=== PATIENT | female | born 1960 | race African-American/Black ===

== ENCOUNTER 2021-11-14 13:35 | Emergency (ER) | payer MEDICAID ==
[~2021-11-14] VITALS: Ht 165.1 cm; Wt 104.0 kg
[~2021-11-14 13:35] MED LIST: AMLO10TA80 PO; HYDR25TA PO; METH-371 MT; METO-411 PO; XAR15 MT
[2021-11-14 14:16] LABS: BASOPHILS % 0.7 % (0.0-2.0); EOSINOPHILS % 0.1 % (0.0-5.0); HEMATOCRIT. 42.7 % (36.0-48.0); HEMOGLOBIN. 14.4 g/dL (12.0-16.0); LYMPHOCYTES % 21.1 % (20.0-50.0); MEAN CORPUSCULAR HEMOGLOBIN 28.2 pg (28.0-32.0); MEAN CORPUSCULAR VOLUME 83.6 fL (81.0-99.0); MONOCYTES % 5.4 % (2.0-8.0); NEUTROPHILS % 72.7 % (40.0-76.0); PLATELET 400 x1000/uL (130-400); RED BLOOD CELL COUNT 5.11 mill/uL (4.2-5.4); RED CELL DISTRIBUTION WIDTH 13.5 % (11.6-14.6)
[2021-11-14 14:26] LABS: CHLORIDE 99 mEq/L (98-107)
[2021-11-14 14:37] LABS: ETHANOL BLOOD < 10 mg/dL
[2021-11-14 15:30] LABS: *AMPHETAMINES SCREEN URINE NEGATIVE (NEGATIVE); *BARBITURATES SCREEN URINE NEGATIVE (NEGATIVE); *BENZODIAZEPINES SCREEN URINE NEGATIVE (NEGATIVE); *COCAINE SCREEN URINE NEGATIVE (NEGATIVE); CANNABINOID URINE SCREEN NEGATIVE (NEGATIVE); METHADONE URINE SCREEN NEGATIVE (NEGATIVE); OPIATES URINE SCREEN NEGATIVE (NEGATIVE); PHENCYCLIDINE URINE SCREEN NEGATIVE (NEGATIVE)
[2021-11-14] MEDS ORDERED: POTASSIUM CHLORIDE 20MEQ TABLET SR PO SCH (16:00)
[2021-11-14 18:05] VITALS: BP 136/82
[2021-11-14] MEDS ORDERED: ACETAMINOPHEN 325MG TABLET PO NR (18:30)
== END 2021-11-14 19:24 | disposition home or self-care (01) ==
LOC: ER 13:35
DX: R00.2 Palpitations (principal); I10 Essential (primary) hypertension; E87.6 Hypokalemia; Z86.39 Personal history of other endocrine, nutritional and metabolic disease
CPT/HCPCS: 36415; 71045; 80053; 80305; 80320; 83880; 84443; 84484; 85025; 85379; 93005; 99285; G0480